=== PATIENT | female | born 1955 | race Caucasian/White ===

== ENCOUNTER 2024-01-27 03:03 | Emergency (ER) | payer OTHER, SELFPAY ==
[2024-01-27 03:07] VITALS: BP 118/88; PULSE 68; RESP 18; TEMP 36.3; O2SAT 98
--- NOTE | 2024-01-27 03:13 | XRR_ITS ---
PROCEDURE INFORMATION: Exam: XR Chest Exam date and time: 01/27/2024 4:03 AM Age: 68 years old Clinical indication: Shortness of breath and other: Weakness, loss of bowel TECHNIQUE: Imaging protocol: Radiologic exam of the chest. Views: 1 view. COMPARISON: No relevant prior studies available. FINDINGS: Lungs: Infiltrates of the retrocardiac and left lower lobe. Pleural spaces: Blunting of the left costophrenic angle. Heart/Mediastinum: Unremarkable. No cardiomegaly. Vasculature: Atherosclerotic disease of the aortic arch. Mild increase in vascular indistinctness and cephalization of the vasculature. Diaphragm: Appears to be left diaphragm eventration. Bones/joints: Right humeral head suture anchors. Degenerative change of the visualized osseous structures. XR/XR chest 1V portable [id number] IMPRESSION: Findings which can be seen in volume overload versus left lower lobe pneumonia with parapneumonic effusion. Correlate clinically.
--- NOTE | 2024-01-27 03:14 | CTR_ITS ---
PROCEDURE INFORMATION: Exam: CT Head Without Contrast Exam date and time: 01/27/2024 3:30 AM Age: 68 years old Clinical indication: Injury or trauma; Fall; Blunt trauma (contusions or hematomas); Additional info: Fall, head injury TECHNIQUE: Imaging protocol: Computed tomography of the head without contrast. Radiation optimization: All CT scans at this facility use at least one of these dose optimization techniques: automated exposure control; mA and/or kV adjustment per patient size (includes targeted exams where dose is matched to clinical indication); or iterative reconstruction. COMPARISON: No relevant prior studies available. RADIATION DOSE METRICS: Total DLP (mGy-cm): 1194.63 FINDINGS: Brain: There is no evidence of acute parenchymal hemorrhage, extra-axial collection, or acute infarction. There is no mass effect, midline shift, or downward herniation. Cerebral ventricles: No ventriculomegaly. Paranasal sinuses: Visualized sinuses are unremarkable. No fluid levels. Mastoid air cells: Visualized mastoid air cells are well aerated. Bones: Unremarkable. No acute fracture. Soft tissues: Unremarkable. CT/CT head wo con* [id number] IMPRESSION: No acute intracranial abnormality.
--- NOTE | 2024-01-27 03:19 | ECG_ITS ---
[facility] Date: 2024-01-27 Pat Name: Latoya Liriano Department: Room: Gender: Female Web Content Manager: : 1955 Requested By: Linda Campa Order Number: [id number] Shikha MD: Sonia Damon M.D. Measurements Intervals [place] Rate: 71 P: 57 ID: [id number] QRS: 70 QRSD: 138 T: 14 QT: 428 QTc: 466 Interpretive Statements SINUS RHYTHM WITH FIRST DEGREE AV BLOCK INTRAVENTRICULAR CONDUCTION DELAY Non-specific ST changes No previous ECG available for comparison Electronically Signed On 01-27-2024 08:33:19 CDT by Sonia Damon M.D. [email or web address]
--- NOTE | 2024-01-27 03:19 | W.ED.FALL ---
HPI - Fall General: Chief Complaint: Fall Stated Complaint: fall/weak Time Seen by Provider: 01/27/24 03:05 History of Present Illness: 68-year-old female with a history of morbid obesity, bipolar disorder, fibromyalgia, hypertension and diabetes who presents to the emergency room with weakness and falls. She said when she woke up tonight she was feeling very weak. She fell wants because she got lightheaded and then she fell again when she got to the toilet. Said she lost control of her bowels. EMS reports that her blood pressure was low when they picked her up in the 90s systolic. Improved somewhat here with a blood pressure of 118/88 on presentation. No fevers. No chest pain. No neck pain. She says she does have some head pain from when she fell. No altered mental status. No focal motor deficits. No fevers. No dysuria. Patient has been having some severe diarrhea. Just this evening. Related Data Home Medications Medication Instructions Recorded Confirmed lisinopril 10 mg tablet 10 mg PO DAILY 11/05/22 11/05/22 Previous Rx's Medication Instructions Recorded ciprofloxacin HCl 500 mg tablet 500 mg PO BID 5 days #10 tabs 03/06/23 ondansetron 4 mg disintegrating 4 mg PO Q4H PRN nausea and 03/06/23 tablet vomiting #20 tabs ondansetron 8 mg disintegrating 8 mg PO Q6H #14 tabs 01/27/24 tablet Allergies Allergy/AdvReac Type Severity Reaction Status Date / Time Sulfa (Sulfonamide Allergy Intermediate ALGY-Hives Verified 03/06/23 15:38 Antibiotics) acetaminophen Allergy Mild algy-nausea Verified 03/06/23 15:38 [From Lorcet (hydrocodone)] hydrocodone Allergy Mild algy-nausea Verified 03/06/23 15:38 [From Lorcet (hydrocodone)] Review of Systems Narrative: Constitutional symptoms: Negative except as documented in HPI. Skin symptoms: Negative except as documented in HPI. Eye symptoms: Negative except as documented in HPI. ENMT symptoms: Negative except as documented in HPI. Respiratory symptoms: Negative except as documented in HPI. Cardiovascular symptoms: Negative except as documented in HPI. Gastrointestinal symptoms: Negative except as documented in HPI. Genitourinary symptoms: Negative except as documented in HPI. Musculoskeletal symptoms: Negative except as documented in HPI. Neurologic symptoms: Negative except as documented in HPI. Psychiatric symptoms: Negative except as documented in HPI. Endocrine symptoms: Negative except as documented in HPI. [facility] ED Female Reproductive History: Spontaneous abortions: No Physical Exam Narrative: EXAM NARRATIVE: General: Alert, no acute distress. Skin: Warm, dry. Head: Normocephalic, atraumatic. Neck: Supple, trachea midline. Eye: Extraocular movements are intact. Ears, nose, mouth and throat: mucosa moist. Cardiovascular: Regular, Normal peripheral perfusion. Respiratory: Lungs are clear to auscultation, respirations are non-labored, breath sounds are equal, Symmetrical chest wall expansion. Gastrointestinal: Soft, Nontender, Non distended Musculoskeletal: Normal ROM, no deformity. Neurological: Alert and oriented, No focal neurological deficit observed. Psychiatric: Cooperative, appropriate mood & affect. Course Vital Signs: Vital signs: Vital Signs Temperature 97.3 F L 01/27/24 03:07 Pulse Rate 74 01/27/24 04:33 Respiratory Rate 18 01/27/24 04:33 Blood Pressure 158/98 01/27/24 04:33 Pulse Oximetry 96 01/27/24 04:33 Oxygen Delivery Me thod Room Air 01/27/24 04:33 MDM - Fall Medical Decision Making Medical decision making: Differential diagnosis for patient presenting with generalized weakness including but not limited to and based on the above HPI, review of systems and physical exam: Sepsis. Dehydration. Renal failure. Electrolyte abnormalities. Anemia. Congestive heart failure. Hypotension. Coronary syndrome. Hepatitis. Cirrhosis. Infections such as pneumonia, urinary tract infection, [place]ick bourne illness, Cellulitis, Viral infections including influenza and Covid-19. Workup: labwork and lab/exam driven imaging ordered to evaluate, rule in and rule out above pathologies. EKG: Time 3:19 AM. Rate 71. Normal sinus rhythm, No ST-T changes, no ectopy, first degree AV Block, EP Interpretation. This was reviewed and interpreted by myself the ER physician at 3:24 AM. Chest x-ray: Radiologist had concern for volume overload versus a left lower lobe pneumonia or parapneumonic effusion so CT scan was ordered. This was reviewed and interpreted by myself the emergency room physician. I also reviewed the radiology report. CT of the chest shows no acute process. She does have a pulmonary nodule. This was reviewed and interpreted by myself the emergency room physician. I also reviewed the radiology report. Lab Review: Laboratory results were reviewed and interpreted by myself the emergency room physician. Lab work is fairly unremarkable. No leukocytosis. No renal failure. No anemia. Urinalysis is pending at shift change. Urinalysis shows no signs of infection. Reexamination: Patient has remained stable. Vitals remain normal. She has had no further syncopal episodes. No dysrhythmias on manager monitoring. No altered mental status. No focal abdominal pain. She has been having some diarrhea. Assessment and plan: Syncope Viral gastroenteritis ?Fluids in the emergency room. - Discharged home - Discussed findings and plan with patient. Answered any questions. - All laboratory values were reviewed and interpreted personally by myself, the ER physician - All imaging was reviewed and interpreted personally by myself, the ER physician. - Evaluation and treatment of this problem were appropriate in the emergency setting Lab Data 01/27/24 03:15 01/27/24 03:15 Radiology Impressions Chest X-Ray 01/27/24 03:13 IMPRESSION: Findings which can be seen in volume overload versus left lower lobe pneumonia with parapneumonic effusion. Correlate clinically. Head CT 01/27/24 03:14 IMPRESSION: No acute intracranial abnormality. Chest CT 01/27/24 04:33 IMPRESSION: 1. No acute findings. 2. Regions of scarring/atelectasis as above. 3. Nonspecific solid left lung base nodule which is likely an evolving granuloma given the additional granulomatous findings, however nonspecific and should be re-evaluated. For patients at low risk (minimal or absent history of smoking and of other known risk factors), recommend CT Chest at 6-12 months, then consider CT Chest at 18-24 months. For patients at high risk (history of smoking or of other known risk factors), recommend CT Chest at 6-12 months, then CT Chest at 18-24 months. (Reference: Naga) REFERENCES: Naga Sepulveda, et al. Guidelines for Management of Incidental Pulmonary Nodules Detected on CT Images: From the Fleischner Society 2017. Radiology. 2017;284(1):228-243. Laboratory Results WBC 8.12 10^3/uL (3.29-11.43) 01/27/24 03:15 RBC 3.61 10^6/uL (3.85-5.65) L 01/27/24 03:15 Hgb 10.00 g/dL (11.27-16.99) L 01/27/24 03:15 Hct 32.4 % (36-47) L 01/27/24 03:15 MCV 89.8 fl (85-98) 01/27/24 03:15 MCH 27.7 pg (27-33) 01/27/24 03:15 MCHC 30.9 g/dL (30-55) 01/27/24 03:15 RDW 14.6 % (12.1-15.1) 01/27/24 03:15 Plt Count 413 10^3/cmm (157-399) H 01/27/24 03:15 MPV 10.4 fL (7.4-10.4) 01/27/24 03:15 Neut % (Auto) 65.6 % 01/27/24 03:15 Lymph % (Auto) 20.8 % 01/27/24 03:15 Dickson % (Auto) 10.8 % 01/27/24 03:15 Eos % (Auto) 1.8 % 01/27/24 03:15 Baso % (Auto) 0.6 % 01/27/24 03:15 Neut # (Auto) 5.32 10^3/uL (1.8-7.7) 01/27/24 03:15 Lymph # (Auto) 1.7 10^3/uL (0.8-4.8) 01/27/24 03:15 Dickson # (Auto) 0.9 10^3/uL (0.2-0.9) 01/27/24 03:15 Eos # (Auto) 0.2 10^3/uL (0.0-0.8) 01/27/24 03:15 Baso # (Auto) 0.1 10^3/uL (0.0-0.1) 01/27/24 03:15 Nucleated RBC % (auto) 0 % 01/27/24 03:15 Nucleated RBCs # 0.0 /100WBC 01/27/24 03:15 Sodium 137 mmol/L (136-145) 01/27/24 03:15 Potassium 3.4 mmol/L (3.5-5.1) L 01/27/24 03:15 Chloride 105 mmol/L (98-107) 01/27/24 03:15 Carbon Dioxide 21 mmol/L (22-29) L 01/27/24 03:15 Anion Gap 14.4 (5-19) 01/27/24 03:15 BUN 15 mg/dL (8-23) 01/27/24 03:15 Creatinine 1.0 mg/dL (0.5-0.9) H 01/27/24 03:15 GFR Calculation 55.5 mL/min (90-130) L 01/27/24 03:15 Glucose 102 mg/dL (65-115) 01/27/24 03:15 Calculated Osmolality 285 mOsm/kg (285-295) 01/27/24 03:15 Lactic Acid 2.8 mmol/L (0.5-2.2) H 01/27/24 03:15 Calcium 7.9 mg/dL (8.5-10.5) L 01/27/24 03:15 Total Bilirubin 0.2 mg/dL (0.15-1.2) 01/27/24 03:15 AST 17 U/L (0-32) 01/27/24 03:15 ALT 10 U/L (0-33) 01/27/24 03:15 Alkaline Phosphatase 120 U/L (35-105) H 01/27/24 03:15 Troponin T Baseline 7 ng/L (0-10) 01/27/24 03:15 C-Reactive Protein 3.0 mg/L (0.0-4.9) 01/27/24 03:15 Total Protein 6.1 g/dL (6.6-8.7) L 01/27/24 03:15 Albumin 3.4 g/dL (3.5-5.2) L 01/27/24 03:15 Globulin 2.7 g/dL (1.3-4.6) 01/27/24 03:15 Urine Color Yellow (Yellow) 01/27/24 05:13 Urine Appearance Clear (CLEAR) 01/27/24 05:13 Urine pH 5.0 (5-7) 01/27/24 05:13 Ur Specific [place] 1.023 (1.005-1.030) 01/27/24 05:13 Urine Protein Trace (Negative) A 01/27/24 05:13 Urine Glucose (UA) Negative (Normal) 01/27/24 05:13 Urine Ketones Trace (Negative) 01/27/24 05:13 Urine Blood Negative (Negative) 01/27/24 05:13 Urine Nitrate Negative (Negative) 01/27/24 05:13 Urine Bilirubin Negative (Negative) 01/27/24 05:13 Urine Urobilinogen 1.0 mg/dL (Negative) 01/27/24 05:13 Ur Leukocyte Esterase Negative (Negative) 01/27/24 05:13 Amorphous Sediment Not Reportable 01/27/24 05:13 Urine Opiates Screen Negative ng/mL (Negative) 01/27/24 05:13 Ur Barbiturates Screen Negative ng/mL (Negative) 01/27/24 05:13 Ur Phencyclidine Scrn Negative ng/mL (Negative) 01/27/24 05:13 Ur Amphetamines Screen Negative ng/mL (Negative) 01/27/24 05:13 U Benzodiazepines Scrn Positive ng/mL (Negative) H 01/27/24 05:13 Urine Cocaine Screen Negative ng/mL (Negative) 01/27/24 05:13 U Marijuana (THC) Screen Negative ng/mL (Negative) 01/27/24 05:13 Coronavirus (PCR) Negative (Negative) 01/27/24 03:26 Influenza A (PCR) Negative (Negative) 01/27/24 03:26 Influenza Type B (PCR) Negative (Negative) 01/27/24 03:26 RSV (PCR) Negative (Negative) 01/27/24 03:26 All radiology interpretation(s) finalized by discharge Discharge Plan Discharge Patient Disposition: Home Clinical Impression: Syncope, Head injury, Incidental pulmonary nodule, Viral gastroenteritis Condition: Stable Prescriptions: New ondansetron 8 mg tablet,disintegrating 8 mg PO Q6H Qty: 14 0RF Rx Instructions: Take 1/2-1 tab every 6 hours as needed for nausea and vomiting No Action lisinopril 10 mg tablet 10 mg PO DAILY ciprofloxacin HCl 500 mg tablet 500 mg PO BID 5 Days Qty: 10 0RF ondansetron 4 mg tablet,disintegrating 4 mg PO Q4H PRN (Reason: nausea and vomiting) Qty: 20 0RF Rx Instructions: 340b please Discharge Orders: Discharge ED (Routine); Ordered 01/27/24 Ordered By: Linda oHoks Discharge Diet: Advance as tolerated Discharge Activity: Increase activity as tolerated Patient Instructions: Syncope (ED), Opioid Safety, Pain Management Activity Restrictions/Additional Instructions: A pulmonary nodule was seen on imaging. This will need follow up imaging with your primary provider. Please schedule an appointment concerning this. Thank you for choosing [facility] for your healthcare needs today. Please realize this is an emergency room and that we are providing you with a medical screening exam and this may not be complete and all inclusive of all the testing and or work up that you may need to determine your ailment or severity of your illness. You have been screened and evaluated and felt safe for discharge. Health conditions do change or evolve sometimes and as such it is important that you follow up with your Primary Doctor to be re checked, 3-5 days is a general good time frame for follow up. You are always welcome to return to the ED for re assessment if your symptoms are worsening or you have new concerns Coding Level of Care Code ED Fitness Plan Coordinator for Terrence Henao
[2024-01-27 03:30] LABS: Basophils # 0.1 10^3/uL (0.0-0.1); Basophils % 0.6 %; Eosinophils # 0.2 10^3/uL (0.0-0.8); Eosinophils % 1.8 %; Hematocrit 32.4 % (36-47); Lymphocytes # 1.7 10^3/uL (0.8-4.8); Lymphocytes % 20.8 %; Mean Corpuscular HGB Conc 30.9 g/dL (30-55); Mean Corpuscular Hemoglobin 27.7 pg (27-33); Mean Corpuscular Volume 89.8 fl (85-98); Mean Platelet Volume 10.4 fL (7.4-10.4); Monocytes # 0.9 10^3/uL (0.2-0.9); Monocytes % 10.8 %; Neutrophils # 5.32 10^3/uL (1.8-7.7); Neutrophils % 65.6 %; Nucleated Red Blood Cells % 0 %; Platelet Count 413 10^3/cmm (157-399); Red Blood Count 3.61 10^6/uL (3.85-5.65); Red Cell Distribution Width 14.6 % (12.1-15.1); White Blood Count 8.12 10^3/uL (3.29-11.43)
[2024-01-27 03:49] LABS: Troponin(5th) Baseline 7 ng/L (0-10)
[2024-01-27 03:51] LABS: Lactic Sepsis W/Reflex 2.8 mmol/L (0.5-2.2)
[2024-01-27 04:06] LABS: Alanine Aminotransferase 10 U/L (0-33); Albumin Level 3.4 g/dL (3.5-5.2); Alkaline Phosphatase 120 U/L (35-105); Blood Urea Nitrogen 15 mg/dL (8-23); Calcium 7.9 mg/dL (8.5-10.5); Carbon Dioxide 21 mmol/L (22-29); Chloride 105 mmol/L (98-107); Globulin 2.7 g/dL (1.3-4.6); Glomerular Filtration Rate 55.5 mL/min (90-130); Glucose 102 mg/dL (65-115); Osmolality Calculated 285 mOsm/kg (285-295); Sodium 137 mmol/L (136-145); Total Bilirubin 0.2 mg/dL (0.15-1.2); Total Protein 6.1 g/dL (6.6-8.7)
[2024-01-27 04:07] LABS: Anion Gap 14.4 (5-19); Aspartate Amino Transferase 17 U/L (0-32); Potassium 3.4 mmol/L (3.5-5.1)
[2024-01-27 04:33] VITALS: BP 158/98; PULSE 74; RESP 18; O2SAT 96
--- NOTE | 2024-01-27 04:33 | CTR_ITS ---
PROCEDURE INFORMATION: Exam: CT Chest Without Contrast; Diagnostic Exam date and time: 01/27/2024 4:41 AM Age: 68 years old Clinical indication: Other: Abn cxr; Additional info: Abnormal chest xray TECHNIQUE: Imaging protocol: Diagnostic computed tomography of the chest without contrast. Radiation optimization: All CT scans at this facility use at least one of these dose optimization techniques: automated exposure control; mA and/or kV adjustment per patient size (includes targeted exams where dose is matched to clinical indication); or iterative reconstruction. COMPARISON: CR (CHEST, ) 01/27/2024 4:03 AM RADIATION DOSE METRICS: Total DLP (mGy-cm): 794.41 FINDINGS: Lungs: Left lower lobe granuloma. Left lower lobe streaky infiltrates. Similar-appearing of the anteromedial right middle lobe. Lingular granuloma. Left lower lobe lung base solid nodule measuring 6.5 x 5.3 mm (series 3, image 49). Smaller micronodularity appreciated along the right minor fissure. Pleural spaces: Unremarkable. No pneumothorax. No pleural effusion. Heart: Unremarkable. No cardiomegaly. No pericardial effusion. Lymph nodes: Calcified left hilar lymph nodes. Vasculature: Atherosclerotic disease of the aortic arch. Spleen: Splenic granulomas. Intestine: Anastomotic suture chain at the midline bowel anteriorly. Bones/joints: Findings compatible with DISH. Diffuse degenerative change of the visualized osseous structures. Soft tissues: Prominent left apical epicardial fat pad. CT/CT chest wo con [id number] IMPRESSION: 1. No acute findings. 2. Regions of scarring/atelectasis as above. 3. Nonspecific solid left lung base nodule which is likely an evolving granuloma given the additional granulomatous findings, however nonspecific and should be re-evaluated. For patients at low risk (minimal or absent history of smoking and of other known risk factors), recommend CT Chest at 6-12 months, then consider CT Chest at 18-24 months. For patients at high risk (history of smoking or of other known risk factors), recommend CT Chest at 6-12 months, then CT Chest at 18-24 months. (Reference: Naga) REFERENCES: Naga Sepulveda et al. Guidelines for Management of Incidental Pulmonary Nodules Detected on CT Images: From the Fleischner Society 2017. Radiology. 2017;284(1):228-243.
[2024-01-27 05:14] LABS: Reflex Lactate Order REFLEX LACTIC ORDERD
--- NOTE | 2024-01-27 05:14 | ECG_ITS ---
[email or web address] Date: 2024[facility]27 Pat Name: Latoya Liriano Department: Room: Gender: Female Location And Measurement Technician: : 1955 Requested By: Linda Campa Order Number: [id number] Shikha MD: Sonia Damon M.D. Measurements Intervals [place] Rate: 70 P: 56 MN: 241 QRS: 73 QRSD: 118 T: 4 QT: 399 QTc: 433 Interpretive Statements SINUS RHYTHM WITH FIRST DEGREE AV BLOCK LOW QRS VOLTAGE IN PRECORDIAL LEADS [QRS DEFLECTION < 1.0 mV IN CHEST LEADS] POSSIBLE RIGHT VENTRICULAR CONDUCTION DELAY [RSR (QR) IN V1/V2] NONSPECIFIC ST & T-WAVE ABNORMALITY Compared to ECG 01/27/2024 03:19:27 Low QRS voltage now present T-wave abnormality now present I Electronically Signed On 01-27-2024 17:18:42 CDT by Sonia Damon M.D. [email or web address]
[2024-01-27 05:15] LABS: Covid PCR NEGATIVE (Negative); Influenza A NEGATIVE (Negative); Influenza B NEGATIVE (Negative); Respiratory Syncytial Virus Ce NEGATIVE (Negative)
[2024-01-27 05:26] LABS: Bilirubin Urine Negative (Negative); Blood Urine Negative (Negative); Glucose Urine UA Negative (Normal); Ketones Urine Trace (Negative); Leukocyte Esterase Urine Negative (Negative); Nitrate Urine Negative (Negative); Protein Urine Trace (Negative); Specific Gravity, Urine 1.023 (1.005-1.030); Urine Appearance Clear (CLEAR); Urine Color Yellow (Yellow)
[2024-01-27 05:33] LABS: Amphetamines Screen Urine Negative (Negative); Barbiturates Screen Urine Negative (Negative); Benzodiazepines Screen Urine Positive (Negative); Cocaine Screen Urine Negative (Negative); Opiate Screen Urine Negative (Negative); PCP Screen Urine Negative (Negative); THC Screen Urine Negative (Negative)
[2024-01-27 05:48] LABS: Add Urine Culture? No; Mucus Urine 2+ /hpf
[2024-01-27 05:48] LABS: Troponin 5 2HR 10.11 ng/L (0-10); Troponin 5 2HR Delta 3.11 ABS# (0-10)
[2024-01-27 05:52] VITALS: BP 158/98; PULSE 72; O2SAT 96
== END 2024-01-27 05:54 | disposition home or self-care (01) ==
PROVIDERS: Emergency Provider Emergency Medicine
DX: R55 Syncope and collapse (principal); S09.90XA Unspecified injury of head, initial encounter; R91.1 Solitary pulmonary nodule; A08.4 Viral intestinal infection, unspecified; Z11.52 Encounter for screening for COVID-19; W19.XXXA Unspecified fall, initial encounter
CPT/HCPCS: 0241U; 36415; 70450; 71045; 71250; 80053; 80306; 81001; 83605; 84484; 85025; 86140; 87040; 93005; 99285